=== PATIENT | male | born 1975 | race Caucasian/White ===

== ENCOUNTER → 2022-10-19 10:16 | Outpatient (CLI) | payer BC, SELFPAY | PROVIDERS: PCP Family Medicine; Visit Provider Internal Medicine | DX: R80.9 Proteinuria, unspecified (principal); R80.8 Other proteinuria ==

== ENCOUNTER → 2022-10-24 08:40 | Outpatient (CLI) | payer BC, SELFPAY ==
[2022-10-24 10:39] LABS: Total Volume,Urine 2650 mL (800-1800)
[2022-10-24 10:46] LABS: Total Protein 24 Hour,Urine 345 mg/24 hr (40-90)
== END ==
PROVIDERS: PCP Internal Medicine; Visit Provider Internal Medicine
DX: N39.0 Urinary tract infection, site not specified (principal)
CPT/HCPCS: 84155

== ENCOUNTER → 2023-03-01 10:50 | Outpatient (CLI) | payer BC, SELFPAY ==
--- NOTE | 2023-03-01 11:02 | XR_ITS ---
FINAL REPORT CLINICAL HISTORY: LT FOOT PAIN x 1 month COMPARISON: None FINDINGS: LEFT FOOT: Three views of the left foot were obtained. There is no acute fracture or dislocation. The joint spaces are intact. There is no soft tissue abnormality. IMPRESSION: No acute bony abnormality. Reviewed, Interpreted and Dictated by Mazin Patel III, MD Transcribed by Misty English Authenticated and [facility]
== END ==
LOC: RAD 10:51
PROVIDERS: PCP Family Medicine; Visit Provider Family Medicine
DX: M79.672 Pain in left foot (principal)
CPT/HCPCS: 73630